=== PATIENT | female | born 1970 | race Hispanic/Latino ===

== ENCOUNTER → 2018-09-01 | Outpatient (CLI) | payer BC ==
--- NOTE | 2018-09-01 14:09 | Diagnostic Imaging Report ---
BILATERAL HEEL X-RAY - 4 VIEWS HISTORY: ^[id number] ^[id number] ^BILATERAL HEEL PAIN COMPARISON: None available. FINDINGS: Bones: No acute displaced fracture. Osseous alignment is within normal limits. Joints: The joint spaces are well-maintained. Small plantar and posterior calcaneal enthesopathy, bilaterally. Soft tissues: The soft tissues appear unremarkable. IMPRESSION: No acute radiographic abnormality. Small plantar and posterior calcaneal enthesopathy, bilaterally. Signed by: Dr. Aleja Crespo M.D. on 09/01/2018 2:06 PM
== END ==
LOC: RAD 13:18
PROVIDERS: ATTEND Family Medicine
DX: M77.52 Other enthesopathy of left foot and ankle (principal); M77.51 Other enthesopathy of right foot and ankle; M79.672 Pain in left foot; M79.671 Pain in right foot

== ENCOUNTER → 2025-01-19 | Day surgery (SDC) | payer BC, OTHER ==
[~2025-01-19] MED LIST: CRESTOR40 MG PO; FENTANYL CITRATE/PF 100MCG/2 ML INJ ONE; GLUCAGON FOR INJ 1 MG VIAL ONE; HYDROCHLOROTHIA25 MG PO; HYOSCYAMINE SULFATE 0.5 MG/ML INJ ONE; LEXAPRO20 MG PO; LIDOCAINE HCL 2% LOCAL INJ 5 ML SDV VIAL INJ ONE; LOSARTAN POTASS25 MG PO; METFORMIN HCL500 MG PO; MIDAZOLAM HCL 2 MG/2 ML VIAL ONE; OZEMPIC1 MG/0.71 SC; PROPOFOL IV EMULSION 10 MG/ML 20 ML VIAL ONE; VIT D PO
[2025-01-19] MEDS: LACTATED RINGER'S 1,000 ML ONE (06:16)
[2025-01-19 08:55] VITALS: BP 143/81; PULSE 73; RESP 16; TEMP 98; O2SAT 95
== END | disposition home or self-care (01) ==
LOC: OR 06:03
PROVIDERS: ATTEND Internal Medicine Gastroenterology
DX: Z12.11 Encounter for screening for malignant neoplasm of colon (principal); D12.5 Benign neoplasm of sigmoid colon; K64.8 Other hemorrhoids; E11.9 Type 2 diabetes mellitus without complications; I10 Essential (primary) hypertension; E78.5 Hyperlipidemia, unspecified; E66.01 Morbid (severe) obesity due to excess calories; F32.A Depression, unspecified; Z01.810 Encounter for preprocedural cardiovascular examination; Z79.84 Long term (current) use of oral hypoglycemic drugs; Z79.85 Long-term (current) use of injectable non-insulin antidiabetic drugs; Z79.899 Other long term (current) drug therapy; Z86.718 Personal history of other venous thrombosis and embolism
CPT/HCPCS: 36415; 45385; 82948; 93005; J1610; J1980; J2003; J2250; J2704; J3010; J7121; 45378